=== PATIENT | male | born 1960 | race Caucasian/White ===

== ENCOUNTER 2016-07-07 19:29 | Inpatient (IN) | payer OTHER ==
[~2016-07-07] VITALS: Ht 167.6 cm; Wt 114.1 kg
[~2016-07-07 19:29] MED LIST: AGM875T PO; ALPR0.5T PO; ASPI-973 PO; ATEN25TA PO; CIPRODEX RIGHT_EAR; FLUO20CA25 PO; LOSA100T29 PO; NPH,100I SUBQ; OXYC5CAP4 PO; SIMV80TA4 PO
[2016-07-07 19:45] VITALS: BP 114/70; PULSE 71; RESP 20; O2SAT 97
[2016-07-07] MEDS ORDERED: Polyethylene Glycol (PEG) 17 Gm Powder PO PRN (20:00)
[2016-07-07] MEDS ORDERED: Ondansetron 2 mg/mL 2 mL Inj IVPUSH PRN (20:00)
[2016-07-07] MEDS: Vancomycin Dose per Pharmacist XX SCH (20:00)
[2016-07-07] MEDS ORDERED: Alum-Mag Hydrox-Simeth 30 mL Suspension PO PRN (20:00)
--- NOTE | 2016-07-07 20:15 | PCM.HPMED ---
Subjective Date of Service Jul 07, 2016 Primary Provider: Admitting Physician: Jaxson Robertson MD Primary Care Physician: Du Petty MD Attending Physician: Jaxson Robertson MD Chief Complaint: Non healing foot ulcer History of Present Illness: This is a 55-year-old male with past medical history of Hypertension, obesity, hypercholesterolemia, insulin-dependent diabetes. Patient presented to the podiatry due to a non healing foot ulcer, with drainage of pus. Patient is sent to the hospital for direct admission. Patient was recently in the low when he first noticed his wound and the bottom of his left foot, trans metatarsal area. He went to the hospital where he had a debridement done. Patient stated he spent 4 days and the hospital and received IV antibiotics, he was discharged on oral ciprofloxacin. Patient immediately went to the airport and the flight back home to [place] and today presented to her podiatry ( less than 48 hours) . Patient endorses subjective fever, chills over the last 24 hours or so. No chest pain, shortness of breath , abdominal pain.,. Review of Systems: Review of systems is pertinent for ulcer,, subjective fever, chills as described above in history of present illness otherwise a comprehensive review x 12 points is negative Allergies Coded Allergies: atorvastatin calcium (Verified Adverse Reaction, Unknown, 09/23/15) Home Medications Oxycodone 10 mg, atenolol 25 mg orally daily, Xanax 0.5 mg 3 times a day, aspirin 81 mg orally daily, losartan 100 mg orally daily, fluoxetine 20 mg orally daily, NPH 40 units twice a day, simvastatin 80 mg orally daily PMH Hypertension, Hypercholesterolemia, Obesity, Insulin-dependent diabetes mellitus. 2 Surgical History Right mastoidectomy , Foot surgery Family History Mother has type II diabetes and hypertension Social History Hx Alcohol Use: No Hx Substance Use: No Hx Tobacco Use: No Smoking Status: Former Smoker Living Arrangement: with Family Exam Vital Signs Vital Sign - Last Date Time Temp Pulse Resp B/P Pulse Ox O2 Delivery O2 Flow Rate FiO2 07/07/16 19:45 36.6 71 20 114/70 97 Room Air Exam General/Constitutional: obese male , and stretcher comfortably, no acute distress HEENT: Normocephalic, atraumatic, sclera anicteric Mouth: Moist oropharyngeal mucosa, no oral thrush. Neck: Atraumatic, Supple, no JVD , trachea is midline No swelling, Non-tender, No carotid bruit Heart: S1, S2, Regular rhythm, No murmurs, No rubs, no gallop Chest:Atraumatic, no chest wall deformity, no tenderness Abdomen / GI: Obese , Soft, Non-tender, non distended, no palpable masses. Bowel sounds normal Lymphatic: No lymphadenopathy, no splenomegaly Extremities: No cyanosis, no calf tenderness . Left LE with dressing in place. No ankle swelling or edema Skin: Warm, Dry, No cyanosis, no rash, and also Psychiatric: Mood/affect normal, Behavior normal, Normal thought content Neurologic: Oriented X3, grossly n Lab and Diagnostics Labs Labs pending X-Rays, CTs and MRIs Foot X-ray Pending Assessment & Plan 1. Infected diabetic Foot Ulcer 2. R/o Osteomyelitis 3. IDDM Type II 4. Hypertension 5. Hypercholesterolemia 6. Obesity Admit inpatient . Patient is being arranged to the OR for tomorrow By Dr Rendon . Obtain blood culture. Wound culture to be obtain during surgery . Start empiric antibiotics : Zosyn and Vancomycin . Patient recently treated with IV antibiotics for 4 days at hospital in [place] and was discharged on PO Cipro. 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 Obtain X-ray to r/o osteomyelitis . consider MRI if negative. Consult Infectious Disease Dr Page Thigh diabetic control . Start Moderate sliding scale insulin , diabetic diet. Obtain A1c . Home medications reviewed and reconciled . Hold Aspirin until tomorrow in PM Heparin for DVT prophylaxis as of tomorrow pm Case discussed over the phone with Podiatry Dr. Rendon . Jaxson Robertson MD Jul 07, 2016 20:15
[2016-07-07 20:50] LABS: BASOPHILS % (AUTO) 0.6 % (0-3); EOSINOPHILS % (AUTO) 2.4 % (0-5); MONOCYTES % (AUTO) 9.6 % (4-12); Platelet Count 163 bil/L (150-400)
[2016-07-07 20:58] LABS: INR 1.01 ratio
[2016-07-07] MEDS ORDERED: METF500T4 PO (20:59)
[2016-07-07] MEDS ORDERED: OMEP20CA11 PO (21:00)
[2016-07-07] MEDS ORDERED: NPH,100V11 SC (21:06)
[2016-07-07] MEDS ORDERED: NPH,100V11 SUBQ (21:06)
[2016-07-07] MEDS ORDERED: ALPR0.5T8 PO (21:09)
[2016-07-07] MEDS ORDERED: FLUO20CA25 PO (21:09)
[2016-07-07] MEDS ORDERED: Vancomycin Inj 2,250 MG in 0.9% Sodium Chloride 500 ML IV ONE (21:30)
--- NOTE | 2016-07-07 21:35 | NUR ---
Admit nurse note Partial admission assessment completed, finishing portions unfinished by primary RN. Pt. denies complaints at the present. He states he developed a blister while walking on tour in [place]. He was treated with fluid drainage and IV antibiotics for several days and then discharged prematurely to traveled back to [place] in order to get care here. PT. states he saw his PCP this morning and was referred here. Pt. gives hx cellulitis and foot wounds related to his diabetes. Med rec completed per PCP list. Allergies updated. Pt. oriented to room, call melvin and fall precautions. Report given to Lizabeth Weiner.
[2016-07-07] MEDS: Insulin Human REGular 300 Unit/3 mL Inj SUBQ SCH (22:46)
[2016-07-07] MEDS: ALPRAZolam 0.5 mg Tablet PO SCH (22:47)
--- NOTE | 2016-07-07 22:47 | PCM.PHAPRO ---
Progress Date of Service: Jul 07, 2016 Non healing foot ulcer Vancomycin Management per Pharmacy: Indication: Cellulitis rule out osteomyelitis Goal Trough: ~15 will shoot for 15, 15-20 if osteomyelitis on xray Age: 55 yo Weight: 114 kg Labs: WBC: 6.8 SrCr: 1.53 mg/dL B Hgb A1c (prior 2015): 10 Micro: Hx of MSSA, however per MD note pus draining form wound Nephrotoxic Risk Factors: Zosyn extended infusion, losartan, poorly controlled diabetes (Hgb A1c = 10) Vitals: All stable Recommendation: Load: Vancomycin 2250 mg IV given in ED (~20 mg/kg) Maintenance: Vancomycin 1750 mg IV Q24h (~15 mg/kg actual body weight) Trough: Draw on 07/10 @ 1999, prior to HS dose. Pharmacy to continue to monitor and adjust per protocol. Thank You, Maricruz Mcbride, Pharm D. Maricruz Mcbride Jul 07, 2016 22:47
[2016-07-07] MEDS: Piperacillin-Tazo 3.375 Gm Inj 3.375 GM in Dextrose 5% Minibag Plus 50 ML IV SCH (22:48)
[2016-07-07 23:59] VITALS: BP 113/73; PULSE 67; RESP 20; O2SAT 96
[2016-07-08] VITALS (9 sets, daily range): BP systolic 98–129; BP diastolic 57–75; PULSE 52–69; RESP 12–20; O2SAT 96–100
[2016-07-08] MEDS: Insulin Human REGular 300 Unit/3 mL Inj SUBQ SCH ×5 (02:30→22:00)
--- NOTE | 2016-07-08 07:23 | PCM.PNMED ---
Subjective Date of Service Jul 08, 2016 Subjective HPI as per admitting physician: This is a 55-year-old male with past medical history of Hypertension, obesity, hypercholesterolemia, insulin-dependent diabetes. Patient presented to the podiatry due to a non healing foot ulcer, with drainage of pus. Patient is sent to the hospital for direct admission. Patient was recently in the low when he first noticed his wound and the bottom of his left foot, trans metatarsal area. He went to the hospital where he had a debridement done. Patient stated he spent 4 days and the hospital and received IV antibiotics, he was discharged on oral ciprofloxacin. Patient immediately went to the airport and the flight back home to [place] and today presented to her podiatry ( less than 48 hours) . Patient endorses subjective fever, chills over the last 24 hours or so. No chest pain, shortness of breath , abdominal pain. S: no overnight events, afebrile - pain moderately controlled - sx today with podiatry - no reports of cp/sob Exam Vital Signs Vital Sign - Last Date Time Temp Pulse Resp B/P Pulse Ox O2 Delivery O2 Flow Rate FiO2 07/08/16 05:01 36.7 52 20 123/72 100 Room Air Intake and Output 07/07/16 07/07/16 07/08/16 Cumulative From/Thru 15:00 23:00 07:00 07/07/16 19:39 - 07/08/16 06:14 Intake Total 408 ml 408 ml Output Total 200 ml 200 ml Balance 208 ml 208 ml Intake Oral 200 ml 200 ml IV Total 208 ml 208 ml Output Urine Total 200 ml 200 ml # Bowel Movements 1 1 Exam General/Constitutional: obese male , and stretcher comfortably, no acute distress HEENT: Normocephalic, atraumatic, sclera anicteric Mouth: Moist oropharyngeal mucosa, no oral thrush. Neck: Atraumatic, Supple, no JVD , trachea is midline No swelling, Non-tender, No carotid bruit Heart: S1, S2, Regular rhythm, No murmurs, No rubs, no gallop Chest:Atraumatic, no chest wall deformity, no tenderness Abdomen / GI: Obese , Soft, Non-tender, non distended, no palpable masses. Bowel sounds normal Lymphatic: No lymphadenopathy, no splenomegaly Extremities: No cyanosis, no calf tenderness . Left LE with dressing in place. No ankle swelling or edema Skin: Warm, Dry, No cyanosis, no rash, and also Psychiatric: Mood/affect normal, Behavior normal, Normal thought content Neurologic: Oriented X3 IVs and Medications Medications Reviewed: Medications were reviewed in detail Lab and Diagnostics Result Diagram: 07/07/16203407/07/162034 X-Rays, CTs and MRIs Foot X-ray Pending Assessment & Plan 1. Infected diabetic Foot Ulcer 2. R/o Osteomyelitis 3. IDDM Type II 4. Hypertension 5. Hypercholesterolemia 6. Obesity Admit inpatient - Patient is being arranged to the OR for today By Dr Rendon . Wound culture to be obtain during surgery . Started empiric antibiotics : Zosyn and Vancomycin 07/07. Patient recently treated with IV antibiotics for 4 days at hospital in [place] and was discharged on PO Cipro. 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 Obtain X-ray to r/o osteomyelitis . consider MRI if negative. Consult Infectious Disease Dr Page, appreciate recommendation uncontrolled DM: Start Moderate sliding scale insulin , diabetic diet. A1C: 8.7 Home medications reviewed and reconciled . Hold Aspirin until tomorrow in PM Heparin for DVT prophylaxis as of tomorrow pm Case discussed over the phone with Podiatry Dr. Rendon by admitting physician. Pain Evaluation: Adequate Pain Control GI Prophylaxis: Not indicated VTE Prophylaxis: Sub-Q Heparin (Unfractionated) VTE Mechanical Devices: Intermittant Pneumatic CD Resuscitation Status: CPR: Attempt Resuscitation Time spent 35 minutes spent with Jaxson Ross DO Jul 08, 2016 07:23
[2016-07-08] MEDS: Piperacillin-Tazo 3.375 Gm Inj 3.375 GM in Dextrose 5% Minibag Plus 50 ML IV SCH ×3 (08:17→20:22)
[2016-07-08] MEDS: ALPRAZolam 0.5 mg Tablet PO SCH ×3 (08:21→22:47)
[2016-07-08] MEDS: Vancomycin Dose per Pharmacist XX SCH (08:24)
--- NOTE | 2016-07-08 09:34 | DRSVH ---
PROCEDURE: X-RAY LEFT FOOT, TWO VIEWS ([id number]) INDICATIONS: RULE OUT osteomyelitis TECHNIQUE: 2 views of the foot were acquired. COMPARISON: None. FINDINGS: Bones: No fractures or dislocations. No suspicious bony lesions. Calcaneal spurring. Soft tissues: No tibiotalar joint effusion. Achilles tendon appears normal. IMPRESSION: Although no bony erosions are identified, plain film radiography is relatively insensiti ve in the acute phases of osteomyelitis and may not demonstrate radiographic changes for 15 days. If acute osteomyelitis is of clinical concern, nuclear medicine regional bone scan or MRI is recommende d. Dictated by: Brennan Mosquera [facility] Interpreted: Lamar Blackman MD on 07/08/2016 at 9:33 Transcribed by: CARLO on 07/08/2016 at 9:34 Approved by: Lamar Blackman MD, PhD on 07/08/2016 at 17:05
--- NOTE | 2016-07-08 14:00 | NUR ---
TO OR Report given to Marie in the OR. BS-216. NPO since midnight. Dressing on his L foot is CDI. Transported to the ED via a gurney.
[2016-07-08] MEDS ORDERED: Lactated Ringer's 1,000 ML IV ONE (14:42)
--- NOTE | 2016-07-08 15:04 | PCM.HPANE ---
Patient Data Date of Service: Jul 08, 2016 Surgeon Admitting Provider:Jaxson Robertson MD Attending Provider:Jaxson Robertson MD Primary Care Physician:Du Petty MD Other Provider: Reason for Visit Diabetic Foot Ulcer Ht/WT & BMI Height (Feet): 5 Height (Inches): 6.00 Weight (Kilograms): 114.100 Body Mass Index 40.43 Allergies Coded Allergies: lisinopril (Verified Allergy, Mild, 07/07/16) hydromorphone (Verified Adverse Reaction, Intermediate, Hallucinations, ) atorvastatin calcium (Verified Adverse Reaction, Unknown, 07/07/16) Past Anesthesia History Anesthesia History: Denies:: Anesthesia Reactions Diabetes History Hx Diabetes?: Yes (Type II on insulin) Current Bedside Blood Glucose: 216 MRSA MRSA: No Medications Hypertension Medication: Yes Home Meds Incl Beta Ad: Yes Date Beta Ad Taken: Jul 08, 2016 Time Beta Ad Taken: 08:22 Previous Beta Ad Dose >24: Previous Dose <24 Hours Reported Medications Alprazolam 0.5 Mg Tablet0.5 Mg PO TID PRN For Anxiety #60 07/07/16 NPH, Human Insulin Isophane (HUMulin-N U100 Insulin Vial)100 Unit/1 Ml Vial30 Unit SUBQ HS #1 VIAL Ref 0 07/07/16 NPH, Human Insulin Isophane (HUMulin-N U100 Insulin Vial)100 Unit/1 Ml Vial50 Units SC QAM #40 07/07/16 Omeprazole 20 Mg Capsule.dr20 Mg PO DAILY #30 07/07/16 Metformin 500 Mg Tablet1,000 Mg PO BID #120 07/07/16 oxyCODONE 5 Mg Capsule5-10 Mg PO Q4H PRN For Pain Ref 0 09/23/15 Simvastatin 80 Mg Ujmamz13 Mg PO HS 30 Days Ref 0 09/16/15 Fluoxetine 20 Mg Jskgtde71 Mg PO DAILY Ref 0 09/16/15 Aspirin 81 Mg Wwbhdi30 Mg PO DAILY Ref 0 09/16/15 Losartan Potassium 100 Mg Jdohwj480 Mg PO DAILY 09/16/15 Atenolol 25 Mg Dvjlig05 Mg PO DAILY #30 TABLET Ref 0 09/16/15 Discontinued Reported Medications Amoxicillin/Clav K 875-125 mg 875 Mg Tab1 Tablet PO BID #20 TABLET Ref 0 09/16/15 Discontinued Scripts Ciprofloxacin/Dexameth Otic Susp (Ciprodex Otic Susp)15 Drop/Ml Oticsoln4 Drop RIGHT_EAR BID 7 Days Ref 0 Prov:Ashly Gonzalez MD 09/18/15 NPH, Human Insulin Isophane (HUMulin-N U100 Insulin Kwikpen)100 Unit/1 Ml Insuln.pen40 Unit SUBQ BID 30 Days Ref 0 Prov:Ashly Gonzalez MD 09/18/15 History History of ENT Problems?: Yes HEENT History: Positive for:: Sinus Problem (POLYPS REMOVED) Denies:: Cataracts Dysphagia Glaucoma Other HEENT Pertinent History: MASTOIDECTOMY - SKULL COMPROMISED BY INFECTION Hx of Heart Problems?: Yes Cardiovascular History: Positive for:: Hypertension Denies:: Cardiac Surgery Chest Pain Congestive Heart Failure Edema Heart Murmur Irregular Heartbeat Pacemaker Thrombophlebitis Other Cardiac History: HYPERLIPIDEMIA Hx of Respiratory Problem?: No Respiratory History: Denies:: Asthma COPD Chest Surgery Dyspnea Emphysema Hemoptysis Pneumonia Tuberculosis Hx Neurologic Problems?: No Neurological History: Denies:: Alzheimer's Disease CVA Dementia Dizziness Headaches Parkinson's Disease Seizures Hx of GI Problems?: Yes Gastrointestinal History: Positive for:: Heartburn (POSSIBLE) Denies:: Diverticulitis Gastroesphageal Reflux Gastrointestinal Bleeding Hepatitis Hiatal Hernia Rectal Bleeding Hx of Problems?: No Genitourinary History: Denies:: HX of Hemodialysis Kidney Stones Urinary Tract Infection HX of Peritoneal Dialysis: No Male Hx: Denies:: Prostate Problems Scrotal Mass Testicular Surgery Hx Musculoskeletal Problems?: Yes Musculoskeletal History: Positive for:: Musculoskeletal Trauma (left second toe injury and surgery) Denies:: Back Injury Joint Replacement Hx of Psycho/Social Problems?: Yes Psycho Social History: Positive for:: Hx Depression (situational - on fluoxetine) Denies:: Anxiety Bipolar Disorder Suicide Attempt Hx Surgeries?: Yes (Left toe surgery, mastoidectomy, R ankle) Hx Any Other Health Problems?: Yes Other History: Positive for:: Hospitalization (osteomyelitis, mastoiditis) Denies:: Cancer Thyroid Disease History Blood Transfusions: Positive for:: Accept Blood Products? Denies:: Blood Transfusions Hx Diabetes: Yes (Type II on insulin)Bedside Blood Glucose: 216 Hx Alcohol Use: NoHx Substance Use: No Smoking Status: Former Smoker Have You Smoked inLast 12 mo: No Stop/Bang Treated for Sleep Apnea?: No Do You Have a CPAP Machine?: No S-Snoring: Do You Snore Loudly: Yes T-Tired: feel tired, fatigued: Yes O-Obsered: Observed not breath: Yes P-Blood Pressure: treated: Yes B- Body Mass Index > 35 kg/m2: Yes A- Age over 50: Yes N- Neck Large Circumference: Yes G- Gender Male: Yes GUSTAVO Total Score: 8 GUSTAVO Risk Assessment: High Risk, =/>3 Yes GUSTAVO Category 2: Yes Risk Assessment Category Category 1A: Patient has history of documented sleep apnea, and HAS NOT received any narcotic, sedative or anesthesia administration during this stay. Category 1B: Patient has history of documented sleep apnea, and HAS received any narcotic , sedative or anesthesia administration during this stay Category 2: Patient has SUSPECTED Obstructive Sleep Apnea, and HAS received any narcotic , sedative or anesthesia administration during this stay. Category 3: Patient has SUSPECTED Obstructive Sleep Apnea and HAS NOT received narcotic, sedative or anesthesia administration during this stay. Category 4: Outpatient in Procedural Areas with known sleep apnea or who screen positive for High Risk via the STOP/BANG questionnaire. Exam Exam Vital Signs Vital Signs Date Time Temp Pulse Resp B/P Pulse Ox O2 Delivery O2 Flow Rate FiO2 07/08/16 08:26 36.7 69 16 119/70 96 Room Air General Appearance: Alert, Oriented X3, Cooperative, No Acute Distress HEENT/AIRWAY: MP 2, Neck Movement (from), Mouth Opening (3 fb), Other (tmd 3 fb ) Lungs: Clear to Auscultation, Normal Air Movement Heart: Exam Unremarkable, Regular Rate/Rhythm, No Murmurs/Rubs/Gallops Meds/Labs/Diagnostics Admission Meds Current Medications Piperacillin Sod/ Tazobactam Sod/ Dextrose/Water (Zosyn 3.375 Gm Inj/D5W Minibag Plus) 50 ml @ 12.5 mls/hr Q8H IV Last administered on 07/08/16 08:17 ; Start 07/07/16 at 21:00 Insulin Human Regular (HUMulin-R Insulin Inj) * Medium Dose Insu... Q6 SUBQ Last administered on 07/08/16 13:52; Start 07/07/16 at 20:30 Alprazolam (Xanax) 0.5 mg TID PO Last administered on 07/08/16 08:21; Start at 20:30 Atenolol (Tenormin) 25 mg DAILY PO Last administered on 07/08/16 08:22; Start 07/08/16 at 08:30 Fluoxetine HCl (Prozac) 20 mg DAILY PO Last administered on 07/08/16 08:22; Start 07/08/16 at 08:30 Losartan Potassium (Cozaar) 100 mg DAILY PO Last administered on 07/08/16 08: 21; Start 07/08/16 at 08:30 Rosuvastatin Calcium 20 mg 20 mg HS PO Last administered on 07/07/16 22:47; Start 07/07/16 at 21:00 Vancomycin HCl/ Sodium Chloride (Vancocin Inj/ Normal Saline) 500 ml @ 250 mls/ hr ONCE ONCE IV Last administered on 07/08/16 03:57; Start 07/07/16 at 21:30 ; Stop 07/07/16 at 23:29; Status DC Bedside Blood Glucose: 216 Labs Test 07/07/16 20:35 07/07/16 20:53 07/08/16 04:26 White Blood Count 6.8th/mm3 (3.8-10.1) Red Blood Count 3.86mil/mm3 (4.40-5.80) Hemoglobin 11.2g/dL (13.8-17.2) Hematocrit 33.6% (41.0-50.0) Mean Corpuscular Volume 87.0fL (81-100) Mean Corpuscular Hemoglobin 29.0pg (27.0-35.0) Mean Corpuscular Hemoglobin Concent 33.3% (32.0-37.0) Red Cell Distribution Width 13.0% (12.3-15.4) Platelet Count 163bil/L (150-400) Neutrophils (%) (Auto) 69.0% (40-74) Lymphocytes (%) (Auto) 15.4% (14-46) Monocytes (%) (Auto) 9.6% (4-12) Eosinophils (%) (Auto) 2.4% (0-5) Basophils (%) (Auto) 0.6% (0-3) Prothrombin Time 10.8sec (8.1-12.5) Prothromb Time International Ratio 1.01ratio Hemoglobin A1c 8.7% (4.8-5.6) Total Bilirubin 0.3mg/dL (0.0-1.2) Aspartate Amino Transf (AST/SGOT) 21U/L (0-50) Alanine Aminotransferase (ALT/SGPT) 25U/L (0-44) Alkaline Phosphatase 87U/L (25-150) Total Protein 6.9g/dL (6.4-8.4) Albumin 3.6g/dL (3.4-5.0) Hold Urine Received (Received) Sodium Level 139mEq/L (134-144) Potassium Level 4.1mEq/L (3.5-5.2) Chloride Level 100mEq/L (97-108) Carbon Dioxide Level 20mmol/L (18-29) Blood Urea Nitrogen 30mg/dL (6-24) Creatinine 1.48mg/dL (0.76-1.27) Estimat Glomerular Filtration Rate 53mL/min (>59) Glucose Level 218mg/dL (60-99) Calcium Level 9.7mg/dL (8.5-10.1) Triglycerides Level 444mg/dL (0-149) Cholesterol Level 250mg/dL (100-199) LDL Cholesterol, Calculated 146.200mg/dL (0-99) VLDL Cholesterol 88.800mg/dL HDL Cholesterol 15mg/dL (>39) Cholesterol/HDL Ratio 16.67 (0.0-4.4) Plan Impression Patient chart reviewed, patient interviewed and anesthestic plan with risks, benefits, and alternatives discussed, and informed consent obtained. ASA Physical Status: ASA3 Severe Disease Anesthetic Plan: TIVA Bene/Risks/Altern/Consents: Yes HP Complete Prior to Induction: Yes Dalton Boswell MD Jul 08, 2016 15:04
[2016-07-08] MEDS ORDERED: MetoCLOpramide 5 mg/mL 2 mL Inj IVPUSH PRN (15:05)
[2016-07-08] MEDS ORDERED: EPHEDrine Sulfate 50 mg/mL Inj IM PRN (15:05)
[2016-07-08] MEDS ORDERED: Ondansetron 2 mg/mL 2 mL Inj IVPUSH PRN (15:05)
[2016-07-08] MEDS ORDERED: hydrALAZINE 20 mg/mL Inj IVPUSH PRN (15:05)
[2016-07-08] MEDS ORDERED: Lactated Ringer's 1,000 ML IV SCH (15:05)
[2016-07-08] MEDS ORDERED: Phenylephrine 10,000 mCg/mL Inj IVPUSH PRN (15:05)
[2016-07-08] MEDS ORDERED: EPHEDrine Sulfate 50 mg/mL Inj IVPUSH PRN (15:05)
[2016-07-08] MEDS ORDERED: Lactated Ringer's 500 ML IV PRN (15:05)
[2016-07-08] MEDS ORDERED: HYDROmorphone 1 mg/mL Inj IVPUSH PRN (15:05)
[2016-07-08] MEDS ORDERED: Atropine 0.4 mg/mL Inj IVPUSH PRN (15:05)
[2016-07-08] MEDS ORDERED: fentaNYL-PF 50 mCg/mL 2 mL Inj IVPUSH PRN (15:05)
[2016-07-08] MEDS ORDERED: Gentamicin 40 mg/mL 2 mL Inj IRRIGATION ONE (15:07)
[2016-07-08] MEDS ORDERED: Bupivacaine-MPF 0.5% 30 mL Inj INFILTRATE ONE (15:08)
--- NOTE | 2016-07-08 18:12 | NUR ---
Social Work- Brief Note Data: EMR reviewed. Pt is a 55 year old male admitted 07/07/16 for diabetic foot ulcer per H&P. Pt's insurance is [employer]. Pt's PCP is Du Petty MD. SW met with pt regarding discharge plan, SW role explained. Pt alert and oriented x3. Pt resides in [place] with [place]. Pt and were in [place] prior to admission. Pt's is still in [place], unavailable as contact. Pt uses no DME and drives. ID is following pt. Pt's DPOA is Sima Koroma, , . Pt has a few steps into his home, may require PT evaluation prior to discharge pending clinical course. Pt to discharge home with family to transport. SW left plan and phone number on whiteboard. SW will continue to follow for needs. Assessment: [place]. Plan: ID following patient. Pt to discharge home with family to transport. SW will continue to follow for needs. Anna Morgan MSW
--- NOTE | 2016-07-08 19:13 | NUR ---
POST-OP Received from PACU via a hospital bed. IV saline locked. Denies pain. Diet will be restarted. Denies SOB. Dressing on his L foot is CDI. He is able to wiggle his toes. Numbness present and is patients baseline. BS-190; SS administered. Oriented to room, call light and bathroom.
--- NOTE | 2016-07-08 19:52 | PCM.ANEP1 ---
Post Anesthesia Phase 1 PACU Phase 1 Assessment Date of Service: Jul 08, 2016 Vital Signs Vital Signs Date Time Temp Pulse Resp B/P Pulse Ox O2 Delivery O2 Flow Rate FiO2 07/08/16 16:47 36.4 57 18 108/70 97 Room Air 07/08/16 16:10 58 12 116/62 96 07/08/16 15:50 36.2 57 14 110/64 96 07/08/16 15:45 66 14 129/66 96 07/08/16 15:40 61 15 98/59 97 07/08/16 15:36 35.5 62 12 100/57 96 Anesthetic Administered: GA Level of Alertness: Awake, talking ISAACS's with Equal Strength: Yes Pain: No Nausea or Vomiting: No Oxygen Delivery: Room Air Lungs: Clear to Auscultation, Normal Air Movement Dermatome Level: Full Sensation Dalton Boswell MD Jul 08, 2016 19:52
--- NOTE | 2016-07-08 19:53 | PCM.ANEP2 ---
Post Anesthesia Evaluation ASA/CMS Post Anesthesia Date of Service: Jul 08, 2016 VS in Patient's Normal Range?: Yes Resp Stable; Airway Patent?: Yes CV Function & Hydration Stable: Yes Mental Status Recovered?: Yes Pain control Satisfactory?: Yes N/V Control Satisfactory?: Yes Dalton Boswell MD Jul 08, 2016 19:52
[2016-07-08] MEDS: Vancomycin Inj 1,750 MG in 0.9% Sodium Chloride 500 ML IV SCH (20:22)
[2016-07-08] MEDS: Heparin 5,000 Unit/mL Inj SUBQ SCH (22:47)
[2016-07-09 00:30] VITALS: BP 143/85; PULSE 58; RESP 18; O2SAT 96
[2016-07-09 04:55] VITALS: BP 122/79; PULSE 63; RESP 16; O2SAT 95
[2016-07-09] MEDS: Piperacillin-Tazo 3.375 Gm Inj 3.375 GM in Dextrose 5% Minibag Plus 50 ML IV SCH ×2 (05:38→13:09)
[2016-07-09] MEDS: Heparin 5,000 Unit/mL Inj SUBQ SCH ×3 (05:39→21:40)
--- NOTE | 2016-07-09 06:09 | NUR ---
Activity Ambulating in room with FWW and heel touch weight bearing to LLE. Steady gait without any noted issues including dizziness, SOB or foot pain. Dressing remains CDI and LLE CMS + with exception to sensation which patient states at baseline he has no feeling r/t neuropathy.
[2016-07-09] MEDS ORDERED: 0.9% Sodium Chloride 1,000 ML IV SCH (07:40)
--- NOTE | 2016-07-09 07:44 | PCM.PNMED ---
Subjective Date of Service Jul 09, 2016 Subjective no complaints overnight - post op, micro pending - ID following. pain tolerable - afebrile, no cp/sob - restart IVF x 10 h - monitor UOP given benton Exam Vital Signs Vital Sign - Last Date Time Temp Pulse Resp B/P Pulse Ox O2 Delivery O2 Flow Rate FiO2 07/09/16 04:55 36.3 63 16 122/79 95 Room Air Intake and Output 07/08/16 07/08/16 07/09/16 Cumulative From/Thru 15:00 23:00 07:00 07/07/16 19:39 - 07/09/16 06:37 Intake Total 200 ml 600 ml 400 ml 1608 ml Output Total 200 ml Balance 200 ml 600 ml 400 ml 1408 ml Intake Oral 400 ml 400 ml 1000 ml IV Total 200 ml 200 ml 0 ml 608 ml Output Urine Total 200 ml # Voids 2 3 5 # Bowel Movements 1 2 Exam General/Constitutional: obese male , and stretcher comfortably, no acute distress HEENT: Normocephalic, atraumatic, sclera anicteric Mouth: Moist oropharyngeal mucosa, no oral thrush. Neck: Atraumatic, Supple, no JVD , trachea is midline No swelling, Non-tender, No carotid bruit Heart: S1, S2, Regular rhythm, No murmurs, No rubs, no gallop Chest:Atraumatic, no chest wall deformity, no tenderness Abdomen / GI: Obese , Soft, Non-tender, non distended, no palpable masses. Bowel sounds normal Lymphatic: No lymphadenopathy, no splenomegaly Extremities: No cyanosis, no calf tenderness . Left LE with dressing in place. decr sensation b/l, warm Skin: Warm, Dry, No cyanosis, no rash, and also Psychiatric: Mood/affect normal, Behavior normal, Normal thought content Neurologic: Oriented X3 IVs and Medications Medications Reviewed: Medications were reviewed in detail Lab and Diagnostics Result Diagram: 07/07/16203407/09/16 0455 X-Rays, CTs and MRIs Foot X-ray Pending Assessment & Plan 1. Infected diabetic Foot Ulcer -Admit inpatient - Patient is being arranged to the OR for today By Dr Rendon .Wound culture obtained during surgery - pending -Started empiric antibiotics : Zosyn and Vancomycin 07/07. Patient recently treated with IV antibiotics for 4 days at hospital in [place] and was discharged on PO Cipro. -ID consulted - appreciate recs 2. R/o Osteomyelitis 3. IDDM Type II - Start Moderate sliding scale insulin , diabetic diet. A1C: 8.7 , restart asa if no bleeding today 4. Hypertension - cont losartan 100mg, if no improv in renal fxn will hold 5. Hypercholesterolemia 6. Obesity 7. GERD - resteart PPI Heparin for DVT prophylaxis as of tomorrow pm Pain Evaluation: Adequate Pain Control GI Prophylaxis: Not indicated VTE Prophylaxis: Sub-Q Heparin (Unfractionated) VTE Mechanical Devices: Intermittant Pneumatic CD Resuscitation Status: CPR: Attempt Resuscitation Time spent 35 minutes spent with eval and mgmt Jaxson Hernadez DO Jul 09, 2016 07:44
[2016-07-09 08:05] LABS: BASOPHILS % (AUTO) 0.9 % (0-3); EOSINOPHILS % (AUTO) 3.5 % (0-5); MONOCYTES % (AUTO) 8.7 % (4-12); Mean Corpuscular Hemoglobin 29.3 pg (27.0-35.0); Mean Corpuscular Volume 88.3 fL (81-100); Platelet Count 187 bil/L (150-400)
[2016-07-09] MEDS: ALPRAZolam 0.5 mg Tablet PO SCH ×3 (08:30→21:39)
[2016-07-09] MEDS: Vancomycin Dose per Pharmacist XX SCH (08:30)
[2016-07-09] MEDS: Pantoprazole 20 mg ER24 Tablet PO SCH (08:34)
[2016-07-09] MEDS: Insulin Human REGular 300 Unit/3 mL Inj SUBQ SCH ×4 (08:34→21:40)
[2016-07-09 08:40] VITALS: BP 107/76; PULSE 68; RESP 14; O2SAT 96
--- NOTE | 2016-07-09 13:50 | PROG NOTE ---
[address] [address] PROGRESS NOTE PATIENT: OLAF ADAMSON : 1960 MR#: [id number] ADMIT: 07/07/2016 JOB ID: [id number] DATE: 07/07/2016 SUBJECTIVE: The patient is seen one day status post incision and drainage of abscess and debridement of ulcer, left foot. He denies any pain in his left foot. This is improved from before the surgery. He denies any fever or chills. PHYSICAL EXAMINATION: Blood pressure 107/76, pulse 68, respirations 14, temperature 36.3, pulse oximetry 96% on room air. Lower extremity examination: Dressing is intact with a small amount of bloody drainage on the inner dressing. There is no erythema of plantar second metatarsophalangeal joint. However, there is still some swelling. There is erythema and swelling around the dorsal incision around the second metatarsal plantar joint. No pustular discharge is noted. A small amount of bloody drainage from the plantar ulcer. There is no fibrous tissue noted. The bone over the second metatarsal head is exposed within the wound base. The granulation tissue is red and firm. Neurovascular status is intact to all toes of the left foot. LABORATORY DATA: WBC 6.6, hemoglobin 11.3, hematocrit 34.1, platelets 187, neutrophils 58. Sodium 139, potassium 4.4, chloride 102, carbon dioxide 22, BUN 25, creatinine 1.51, estimated GFR 51, glucose 191, calcium 9.7. Wound culture from July 08, 2016 shows few polys, mini gram-positive cocci. There is insufficient growth. Culture is re-incubated. ASSESSMENT AND PLAN: 1. Cellulitis with abscess left foot is resolving well status post I and D as well as the IV antibiotics appear to be resolving the acute infection. There is no pustular discharge today as there was yesterday. I flushed the ulcerations both dorsal and plantar. The area was then packed using 1/4-inch Iodoform gauze, and the remaining dressing consisted of dry 4x4 gauze, Kerlix and tape. The patient tolerated the procedure well. I recommended flushing of the wound and changing the dressing and packing twice a day. If the patient continues to do well, I think he could be discharged on Monday with oral antibiotics. I will recheck the foot for worsening signs of infection tomorrow. 2. Type 2 diabetes, uncontrolled. His hemoglobin A1c is elevated at 8.7. I have discussed with him in the past the importance of keeping his blood sugars under control to fight off infection as well as to promote wound healing.
[2016-07-09 13:55] VITALS: BP 103/68; PULSE 56; RESP 16; O2SAT 98
--- NOTE | 2016-07-09 13:59 | NUR ---
PTEvaluation completed. Please go to "Notes" then click on "Assessments and Notes" (bottom left corner of screen). Then select appropriate discipline tab on top of screen.
--- NOTE | 2016-07-09 16:22 | OP ---
[address] [address] OPERATIVE REPORT PATIENT: OLAF ADAMSON : 1960 MR#: [id number] ADMIT: 07/07/2016 JOB ID: [id number] DATE OF SURGERY: 07/08/2016 PREOPERATIVE DIAGNOSIS(ES): Abscess, second metatarsophalangeal joint, left foot, with diabetic ulcer. POSTOPERATIVE DIAGNOSIS(ES): Abscess, second metatarsophalangeal joint, left foot, with diabetic ulcer. SURGEON: Danuta Rendon DPM. ACCOUNT CONTACT ASSOCIATE: None. PROCEDURE: Incision and drainage of abscess with debridement of diabetic ulcer, second metatarsophalangeal joint, left foot. ANESTHESIA: Local with IV sedation. The patient is brought to the operating room and placed in supine position on the operating room table. After IV sedation was administered, 4 cc of a 1:1 mixture of lidocaine 1% plain and Marcaine 0.5% plain was infiltrated around the 2nd metatarsophalangeal joint. The foot was then prepped and draped in the usual sterile technique. Anesthesia was tested for and found to be adequate. Attention was then directed to the plantar aspect of the 2nd metatarsophalangeal joint where it was noted an ulceration which measured approximately 6 cm x 2 cm, plantar 2nd metatarsophalangeal joint. There was area of ulceration which probed down to the joint of the 2nd metatarsophalangeal joint and pustular discharge could be manually expressed through this area when there was pressure applied from both plantar and dorsal 2nd metatarsal plantar joint. Using a 10 blade, I incised from the deepest portion of the ulceration both distally and laterally up to the base of the second toe plantarly and also distally into the arch. The nonviable, fibrotic, and necrotic tissue was excised using a tissue nipper and a rongeur. A sample of the soft tissue was taken and Gram stain culture and sensitivity was ordered. It was noted that there was some fat necrosis as well as grayish fibrotic tissue and grayish friable fibrotic tissue within the subcutaneous tissue. I debrided down to the 2nd metatarsal head and it was noted that the joint capsule itself was also necrotic in appearance and this was debrided and excised and removed in toto. The 2nd metatarsal head appeared white and normal in color and was hard to palpation. The soft tissue around the joint which looked friable and discolored was excised using a rongeur. It was noted that dorsal pressure around the 2nd metatarsophalangeal joint created drainage through the plantar ulcer and attention was then directed to the dorsal aspect of the 2nd metatarsophalangeal joint where a 1.5 cm incision was made using a 15 blade. The incision was deepened down to subcutaneous tissue using iris scissors. It was noted that there was some friable fibrotic tissue within the area and this was excised using a tissue nipper and a rongeur. The area was then copiously flushed with lactated Ringer solution containing gentamicin solution. The area was then examined for further necrotic tissue and this was removed. The area was then copiously flushed again using lactated Ringer's with gentamicin. Attention was then directed to the plantar aspect of the 2nd metatarsophalangeal joint and the area was inspected for any further necrotic tissue. Using pulsed lavage, the area was copiously flushed with 1000 cc of lactated Ringer solution containing gentamicin. The area was then packed using quarter-inch Iodoform gauze, and the foot was dressed using lactated Ringer's moistened 4 x 4 gauze, both dorsally and plantarly, dry 4 x 4 gauze, Kerlix, and an Elie wrap. The patient tolerated the procedure and anesthesia well. He left the operating room with vital signs stable and vascular status intact to all toes of the left foot. The patient will be transferred back to the [facility] orthopedic floor once he is medically stable from the recovery room.
--- NOTE | 2016-07-09 19:16 | NUR ---
Dressing change Dr Rendon changed pt's left foot dressing this a.m. and asked that I do another dressing change before the end of day shift. Per Dr Rendon's instructions, I removed current dressing and packing, flushed the open wounds with normal saline. I then repacked both wounds with iodoform tape and covered the pt's foot with 4x4 gauze and kerlix. Pt tolerated the dressing change well. Care continues.
[2016-07-09 20:44] VITALS: BP 111/77; PULSE 62; RESP 16; O2SAT 96
[2016-07-09] MEDS: Vancomycin Inj 1,750 MG in 0.9% Sodium Chloride 500 ML IV SCH (21:42)
[2016-07-10] MEDS: Piperacillin-Tazo 3.375 Gm Inj 3.375 GM in Dextrose 5% Minibag Plus 50 ML IV SCH ×2 (00:12→04:46)
--- NOTE | 2016-07-10 02:38 | NUR ---
Activity Pt up to BR with SBA - following partial WB status to LLE; using IV pole or FWW to assist in off-loading while ambulating. Gait steady. CABLE LACER called down to CS and ordered postop shoe for patient. When awake, will place when awake and ambulating. No acute issues thus far. No c/o pain. IV patent - tolerating IV abx. Pleasant, call light in reach. Care continues.
[2016-07-10] MEDS: Heparin 5,000 Unit/mL Inj SUBQ SCH ×3 (04:44→20:47)
[2016-07-10 04:49] VITALS: BP 112/73; PULSE 65; RESP 18; O2SAT 98
[2016-07-10 05:06] LABS: BASOPHILS % (AUTO) 1.4 % (0-3); EOSINOPHILS % (AUTO) 4.9 % (0-5); MONOCYTES % (AUTO) 10.4 % (4-12); Mean Corpuscular Hemoglobin 29.2 pg (27.0-35.0); Mean Corpuscular Volume 86.3 fL (81-100); NEUTROPHILS % (AUTO) 41.9 % (40-74); Platelet Count 178 bil/L (150-400)
[2016-07-10] MEDS: Pantoprazole 20 mg ER24 Tablet PO SCH (06:21)
--- NOTE | 2016-07-10 07:33 | PCM.PNMED ---
Subjective Date of Service Jul 10, 2016 Subjective no acute events overnight, denies sob/cp/f - holding losartan with ADIN Exam Vital Signs Vital Sign - Last Date Time Temp Pulse Resp B/P Pulse Ox O2 Delivery O2 Flow Rate FiO2 07/10/16 04:49 36.6 65 18 112/73 98 Room Air Intake and Output 07/09/16 07/09/16 07/10/16 Cumulative From/Thru 15:00 23:00 07:00 07/07/16 19:39 - 07/10/16 06:19 Intake Total 1708 ml 1240 ml 4556 ml Output Total 200 ml Balance 1708 ml 1240 ml 4356 ml Intake Oral 800 ml 200 ml 2000 ml IV Total 908 ml 1040 ml 2556 ml Output Urine Total 200 ml # Voids 4 3 12 # Bowel Movements 1 3 Exam General/Constitutional: obese male , and stretcher comfortably, no acute distress HEENT: Normocephalic, atraumatic, sclera anicteric Mouth: Moist oropharyngeal mucosa, no oral thrush. Neck: Atraumatic, Supple, no JVD , trachea is midline No swelling, Non-tender, No carotid bruit Heart: S1, S2, Regular rhythm, No murmurs, No rubs, no gallop Chest:Atraumatic, no chest wall deformity, no tenderness Abdomen / GI: Obese , Soft, Non-tender, non distended, no palpable masses. Bowel sounds normal Lymphatic: No lymphadenopathy, no splenomegaly Extremities: No cyanosis, no calf tenderness . Left LE with dressing in place. decr sensation b/l, warm Skin: Warm, Dry, No cyanosis, no rash, and also Psychiatric: Mood/affect normal, Behavior normal, Normal thought content Neurologic: Oriented X3 IVs and Medications Medications Reviewed: Medications were reviewed in detail Lab and Diagnostics Result Diagram: 07/10/16 0430 07/10/16 0430 X-Rays, CTs and MRIs Foot X-ray Pending Additional Diagnostics I&D - Dr. Rendon DATE OF SURGERY: 07/08/2016 PREOPERATIVE DIAGNOSIS(ES): Abscess, second metatarsophalangeal joint, left foot, with diabetic ulcer. POSTOPERATIVE DIAGNOSIS(ES): Abscess, second metatarsophalangeal joint, left foot, with diabetic ulcer. Assessment & Plan 1. Infected diabetic Foot Ulcer -Admit inpatient -s/p I&D by Dr Rendon - Wound culture obtained during surgery - pending, needing reincubation, gram pos cocci on gram stain -cont empiric antibiotics : Zosyn and Vancomycin 07/07. Patient recently treated with IV antibiotics for 4 days at hospital in [place] and was discharged on PO Cipro. -ID consulted - appreciate recs 2. R/o Osteomyelitis 3. IDDM Type II - sliding scale insulin , diabetic diet. A1C: 8.7, restart asa if no bleeding today 4. Hypertension - cont losartan 100mg, if no improv in renal fxn will hold 5. Hypercholesterolemia/hypertriglyceridemia -start fenofibrate today - TG 444 6. Obesity 7. GERD - resteart PPI Heparin for DVT prophylaxis Pain Evaluation: Adequate Pain Control GI Prophylaxis: Not indicated VTE Prophylaxis: Sub-Q Heparin (Unfractionated) VTE Mechanical Devices: Intermittant Pneumatic CD Resuscitation Status: CPR: Attempt Resuscitation Time spent 35 minutes spent with eval and mgmt Jaxson Hernadez DO Jul 10, 2016 07:33
[2016-07-10] MEDS: Insulin Human REGular 300 Unit/3 mL Inj SUBQ SCH ×4 (08:11→22:00)
[2016-07-10] MEDS: ALPRAZolam 0.5 mg Tablet PO SCH ×3 (08:30→20:43)
[2016-07-10] MEDS: Vancomycin Dose per Pharmacist XX SCH (08:30)
[2016-07-10 10:58] VITALS: BP 112/76; PULSE 58; RESP 17; O2SAT 96
[2016-07-10 14:15] LABS: Magnesium 1.6 mg/dL (1.6-2.6); Phosphorus 3.6 mg/dL (2.5-4.9)
[2016-07-10 15:34] VITALS: BP 127/74; PULSE 57; RESP 18; O2SAT 97
[2016-07-10 17:05] LABS: APPEARANCE,URINE HAZY (CLEAR,HAZY); COLOR,URINE YELLOW (YELLOW); OCCULT BLOOD,URINE LARGE (NEGATIVE); PH,URINE 5.5 (5.0-8.0); UROBILINOGEN,URINE NORMAL (NORMAL)
--- NOTE | 2016-07-10 17:16 | NUR ---
Post voiding bladder scan Post-void residual urine of 15 mL at 1500. Post-void residual of 0 mL at 1640. Pt voiding without complaint.
[2016-07-10] MEDS ORDERED: Vancomycin Serum Trough XX ONE (20:00)
--- NOTE | 2016-07-10 20:07 | PROG NOTE ---
[address] [address] PROGRESS NOTE PATIENT: OLAF ADAMSON : 1960 MR#: [id number] ADMIT: 07/07/2016 JOB ID: [id number] DATE: 07/10/2016 The patient is seen two days status post incision and drainage of abscess, left foot. He denies any pain, fever, chills. He has a small amount of bloody drainage on the dressing when he got up today. He has been ambulating in his surgical shoe. PHYSICAL EXAMINATION: Blood pressure 127/74, pulse 57, respiratory rate 18, temperature 36.6, pulse oximetry 97% on room air. Lower extremity exam: Dressing is intact with a small amount of bloody drainage on the outer dressing. There is no erythema, plantar 2nd metatarsophalangeal joint. There is mild erythema and swelling around the dorsal ulcer over the 2nd metatarsophalangeal but this is decreased from the previous visit. A small amount of serosanguineous fluid. There is no pustular discharge noted. The granulation tissue is red and firm. There is bone and tendon exposed within the wound base and is unchanged the previous visit. The granulation tissue is red and firm. A small amount of fibrous tissue within the wound base. Neurovascular status is intact to all toes of the left foot. Microbiology wound culture from July 08, 2016 shows probable Staph aureus. Sensitivities to follow. No anaerobes isolated. LABORATORY DATA: WBC 4.9, hemoglobin 11.1, hematocrit 32.8, platelets 178, neutrophils 41.9. Sodium 138, potassium 4.6, chloride 101, carbon dioxide 23, BUN 23, creatinine 1.65, estimated GFR 46, glucose 171, calcium 9.3. ASSESSMENT AND PLAN: 1. Cellulitis with abscess, left foot, is resolving well. I think the patient can be discharged home on oral antibiotics once he is medically stable to go home as per the hospitalists. We will continue with the vancomycin and Zosyn until the sensitivities can be obtained from the intraoperative cultures. 2. Diabetic neuropathic ulcer, status post incision and drainage of left 2nd metatarsophalangeal joint. The dressing was changed and the area was copiously flushed with normal saline solution. The wounds were repacked using 1/4-inch Iodoform gauze and the remaining dressing consisted of 4 x 4 gauze and Kerlix. The patient tolerated the procedure well. Once the patient is discharged, recommend following up at the [facility] within one week. Patient instructed to change dressing daily and to limit his weightbearing in a surgical shoe. 3. Type 2 diabetes, uncontrolled. Will continue to monitor his blood sugars when he is in the wound clinic and make recommendations.
[2016-07-10 20:15] VITALS: BP 129/66; PULSE 62; RESP 16; O2SAT 96
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
--- NOTE | 2016-07-10 21:30 | PCM.PHAPRO ---
Progress Date of Service: Jul 10, 2016 Non healing foot ulcer Dx: cellulitis vancomycin goal 10-15 vancomycin trough 8.7 below goal increase vancomycin to 2gm IV q24h draw next trough at 2130 on 07/13 per pharmacy Josiah BrizuelaD Josiah Hassan Jul 10, 2016 21:30
[2016-07-10] MEDS ORDERED: Vancomycin Inj 2,000 MG in 0.9% Sodium Chloride 500 ML IV SCH (22:00)
[2016-07-11] MEDS: Heparin 5,000 Unit/mL Inj SUBQ SCH ×3 (05:08→21:45)
[2016-07-11 06:15] VITALS: BP 122/76; PULSE 62; RESP 16; O2SAT 98
[2016-07-11] MEDS: Pantoprazole 20 mg ER24 Tablet PO SCH (06:41)
[2016-07-11 06:53] LABS: Mean Corpuscular Hemoglobin 29.3 pg (27.0-35.0); Mean Corpuscular Volume 86.2 fL (81-100); Platelet Count 173 bil/L (150-400)
[2016-07-11 07:19] LABS: BASOPHILS % (AUTO) 1 % (0-3); EOSINOPHILS % (AUTO) 4 % (0-5); MONOCYTES % (AUTO) 8 % (4-12); NEUTROPHILS % (AUTO) 51 % (40-74)
[2016-07-11] MEDS: ALPRAZolam 0.5 mg Tablet PO SCH ×3 (08:30→21:44)
[2016-07-11] MEDS: Vancomycin Dose per Pharmacist XX SCH (08:30)
--- NOTE | 2016-07-11 10:47 | PCM.PNNEPH ---
Subjective Date of Service Jul 11, 2016 Subjective The patient was seen today and his troponin was reviewed. He has approximately a 20 year history of insulin-requiring diabetes mellitus. He is also a long- standing history of issues with his left foot following surgery a number of years ago. He denies a history of any prior renal problems, history of retinopathy, prostate problems. His renal function is beginning to improve and he appears to be in the diuretic phase of acute kidney injury. His blood pressures have ranged between 110 in the low 120s. Last 24-hour intake and output showed 2356 in and 900 out over the last 8 hours she has had 2300 in urine output. This morning's hemoglobin is 11.7, sodium is 138, potassium 4.2, chloride 102, bicarbonate is 22, BUN and creatinine are 20 and 1.4 respectively. Exam Vital Signs Vital Sign - Last Date Time Temp Pulse Resp B/P Pulse Ox O2 Delivery O2 Flow Rate FiO2 07/11/16 06:15 36.6 62 16 122/76 98 Room Air Intake and Output 07/10/16 07/10/16 07/11/16 Cumulative From/Thru 15:00 23:00 07:00 07/07/16 19:39 - 07/11/16 06:26 Intake Total 227 ml 1389 ml 1406 ml 7578 ml Output Total 900 ml 2300 ml 3400 ml Balance 227 ml 489 ml -894 ml 4178 ml Intake Oral 1260 ml 200 ml 3460 ml IV Total 227 ml 129 ml 1206 ml 4118 ml Output Urine Total 900 ml 2300 ml 3400 ml # Voids 12 # Bowel Movements 3 Exam HEENT examination is remarkable for mildly pale sclera. Neck is supple without adenopathy, thyromegaly, or intravenous distention. Lungs are clear although somewhat diminished in both bases. Heart was regular with a soft systolic murmur. Abdomen is soft without any tenderness or rebound guarding masses or hepatosplenomegaly. Extremities show any evidence of any clubbing, cyanosis, or edema. Lab and Diagnostics Result Diagram: 07/11/16 0600 07/11/16 0559 X-Rays, CTs and MRIs Foot X-ray Pending Additional Diagnostics I&D - Dr. Rendon DATE OF SURGERY: 07/08/2016 PREOPERATIVE DIAGNOSIS(ES): Abscess, second metatarsophalangeal joint, left foot, with diabetic ulcer. POSTOPERATIVE DIAGNOSIS(ES): Abscess, second metatarsophalangeal joint, left foot, with diabetic ulcer. Plan Impression Impression #1 drug-induced acute kidney injury which appears to resolving number to diabetic nephropathy #3 hypertension with hypertensive heart disease and hypertensive nephrosclerosis Recommendations #1 as the patient is in a diuretic phase we need to closely follow his urine output along with intake and output and lab over the next 24 hours. I would like to go ahead and discontinue Protonix as he is in acute kidney injury of this medication is contraindicated. Eder Goodwin DO Jul 11, 2016 10:47
[2016-07-11] MEDS: Insulin Human REGular 300 Unit/3 mL Inj SUBQ SCH ×4 (10:54→21:45)
[2016-07-11 13:09] VITALS: BP 121/75; PULSE 62; RESP 16; O2SAT 98
--- NOTE | 2016-07-11 13:45 | NUR ---
D/C from PT Pt has met all PT goals and is safe to amb w/NSG
[2016-07-11] MEDS: CeFAZolin Inj 2 GM in IV Premix 1 EACH IV SCH ×2 (14:21→21:45)
--- NOTE | 2016-07-11 14:36 | CONS ---
[address] [address] CONSULTATION REPORT PATIENT: OLAF ADAMSON : 1960 MR#: [id number] ADMIT: 07/07/2016 JOB ID: [id number] DATE OF SERVICE: 07/11/2016 INFECTIOUS DISEASE CONSULTATION: I thank Dr. Rendon for this timely consult. REASON FOR CONSULTATION: Severe left diabetic foot infection. 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 The patient is a longstanding diabetic with severe neuropathy and he had noticed a callus just under the head of his left 2nd toe prior to leaving but it was not bothering him, but with the plane flight and perhaps increased activity in [place] combined with his neuropathy he quickly developed a significant foot infection which led to his admission to a hospital in [place] for about four days. We have fragmentary records from that hospital and I have attempted to talk to them by telephone and are still waiting a record, and in particular, were interesting in getting from the [facility] the culture results that were done there. In any event, the patient received antibiotics intravenously and improved in the hospital for about three or four days and then was sent out on oral Cipro to return back to the [facility]. Once he flew back, he came to the ED and was admitted under the care of Dr. Rendon as well as the hospitalist service for debridement of his foot. During a procedure that was done on the , Dr. Rendon performed an extensive debridement and clean out of a septic joint as well as debridement of some necrotic tissue but she did not feel that there was involvement of the bone, and Dr. Rendon actually recommended that the patient could be discharged relatively soon with careful wound care and perhaps even oral antibiotics as he did not appear to have osteo. ID consultation is requested at this time regarding antibiotic management. Note that I came by to see the patient on Monday afternoon, July 09, but he was actually already in surgery and we did spend quite a period of time on the phone to the [facility] trying to get the micro like records but we were unsuccessful and asked that they Email them to us and we now await those records. The patient tells me that when he was initially ill in [place] he did have obvious drainage of pus out of his foot as well as fever, chills, malaise, generalized weakness and anorexia but no shortness of breath, chest pain, nausea, vomiting, diarrhea or dysuria. PAST MEDICAL HISTORY: 1. Diabetes mellitus type 2, insulin requiring, for about 25 years. 2. Hypertension. 3. Hyperlipidemia. 4. Morbid obesity with BMI just above 40. 5. History of recurrent diabetic foot infections. 6. Severe diabetic neuropathy. 7. History of mastoiditis September 2015 requiring extensive surgery at [facility] in [place]. 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 He neither smokes nor drinks. Does not use illicit drugs. FAMILY HISTORY: Negative for tuberculosis in first degree relatives. His mother has diabetes. REVIEW OF SYSTEMS: Was done. The patient has no significant headache, visual complaints or sinus symptoms. He no longer has any pain at the site of his right mastoid surgery. He denies stiff neck or swollen lymph nodes. No cough, shortness of breath, chest pain, nausea, vomiting or diarrhea. No dysuria, urgency or frequency and he has good urine output. He notes his feet are not quite insensate but he has very little feeling in them. Otherwise review of systems is negative. PHYSICAL EXAMINATION: Reveals an obese gentleman in no acute distress sitting up in his hospital room watching TV. Temperature 36.6, pulse 62, respiratory rate 16, blood pressure 122/76. He is saturating well on room air. Examination of the mental status completely normal. Head without trauma or temporal wasting. No scleral icterus or conjunctivitis. His oral cavity is benign. No thrush or hairy leukoplakia. Neck: Supple without adenopathy. Lungs: Clear posteriorly. Cardiac tones: Regular rate and rhythm without any murmur. He does not have any central line. He has a peripheral line in his left forearm which looks good. The hands and arms are benign-appearing. Abdomen: Soft and nontender without organomegaly. No Moyer catheter is present. No suprapubic tenderness. No cervical adenopathy. No inguinal adenopathy. His legs are without any venous stasis type changes or discoloration. His joints are free of any synovitis. His feet bilaterally have slow capillary refill at about 3 seconds but good large vessel pulses including dorsal pedal and posterior tibial. His feet are almost insensate and he does not appreciate touch or palpation. The left foot has a 5 cm vertical incision on the plantar surface which extends downward vertically across the foot beginning at the intersection of the 2nd and 3rd web space. This wound was packed and I removed the packing which was not foul smelling and the tissues appeared to be viable. On the upper side above the dorsal surface of the foot just basically directly through the foot from the large incision, there is a much smaller packed incision and I removed that packing too. This much smaller wound appears benign. Remainder of the physical is unremarkable. LABORATORIES: Include white count varying between 4000 and 6000, basically normal differential. Creatinine 1.41 and was as high as 1.65 yesterday, but it is improving already. C-reactive protein is pending as I just ordered it. Hemoglobin A1c 8.7. Cholesterol 250. LFTs are normal. Urinalysis without pyuria. Urine eosinophils negative. The culture from the foot obtained here grew MSSA. The DIANE to oxacillin is excellent at 0.5. We also have good sensitivity to tetracycline and Bactrim. The x-ray of the left foot shows no evidence of osteomyelitis. Renal and podiatry consults were reviewed. IMPRESSION: This patient has quite a severe diabetic foot infection which appears to extend all the way through the left foot at about the level of the 2nd and 3rd metatarsal heads. This has been extensively debrided by Dr. Rendon who debrided out the necrotic tissue including some joint capsule, and is now appropriately packed. It would appear clinically this wound is coming under control and the patient is certainly nontoxic with no fever, white count or systemic problems. My only concern here is the discovery of MSSA in a severe diabetic foot infection which presumably does not include osteomyelitis. My favorite choice in this situation would be the linezolid but the patient is on long-term Prozac and it would likely not be safe to combine these agents because of the risk of serotonin syndrome. Barring that, we could consider oral therapy for an extended period with another agent such as doxy, moxifloxacin or trimethoprim sulfamethoxazole, but all of these have some drawbacks. Dicloxacillin would also be a good oral option here. I am inclined to favor a short course at least of a once a day intravenous antibiotic which could be perhaps done in the [facility] or at his home in [place], but will plan to discuss this case with Dr. Rendon before making a final decision. RECOMMENDATIONS: 1. Discontinue vancomycin which I have done because of its nephrotoxic potential and is not needed here as we know it is MSSA. 2. Will start Ancef 2 g q.8. 3. I will discuss this case with Dr. Rendon to see whether she thinks osteo is possible and also to see if she thinks oral or IV therapy would be preferable. Then we will arrive at some decision and leave final recommendations in the morning. 4. I have ordered a CRP as well as changing the antibiotics.
--- NOTE | 2016-07-11 16:28 | PCM.PNMED ---
Subjective Date of Service Jul 11, 2016 Subjective Wondering about going home. No chest pain, no dyspnea, no nausea vomiting no foot pain Exam Vital Signs Vital Sign - Last Date Time Temp Pulse Resp B/P Pulse Ox O2 Delivery O2 Flow Rate FiO2 07/11/16 13:09 36.4 62 16 121/75 98 Room Air Intake and Output 07/10/16 07/10/16 07/11/16 Cumulative From/Thru 15:00 23:00 07:00 07/07/16 19:39 - 07/11/16 06:26 Intake Total 227 ml 1389 ml 1406 ml 7578 ml Output Total 900 ml 2300 ml 3400 ml Balance 227 ml 489 ml -894 ml 4178 ml Intake Oral 1260 ml 200 ml 3460 ml IV Total 227 ml 129 ml 1206 ml 4118 ml Output Urine Total 900 ml 2300 ml 3400 ml # Voids 12 # Bowel Movements 3 Exam Gen.- A+ O 3 no apparent distress. Obese male lying in bed Eyes- open conjunctiva clear, pupils equal nonicteric ENT- ears normal, nose normal Neck- supple/trach midline CVS-normal rate Lungs-normal rate, respirations regular no accessory muscles GI-generous pannus Musc- moving 4 no obvious deformity Neuro- cranial nerves II through XII intact to gross examination, nonfocal Skin- warm and dry, no rashes/lesions/wounds noted left foot wrapped in gauze , bloody drainage soaks through at base of foot Psych- pleasant and appropriate, Lab and Diagnostics Result Diagram: 07/11/16 0600 07/11/16 0559 X-Rays, CTs and MRIs Foot X-ray Pending Additional Diagnostics I&D - Dr. Rendon DATE OF SURGERY: 07/08/2016 PREOPERATIVE DIAGNOSIS(ES): Abscess, second metatarsophalangeal joint, left foot, with diabetic ulcer. POSTOPERATIVE DIAGNOSIS(ES): Abscess, second metatarsophalangeal joint, left foot, with diabetic ulcer. Assessment & Plan 55-year-old male came back from [place] with a diabetic foot 07/07, procedure with Dr. Rendon 07/08. Whether there is a concern of osteomyelitis is not clear at this time. # Infected diabetic Foot Ulcer -Admit inpatient -s/p I&D by Dr Rendon - Wound culture obtained during surgery - pending, needing reincubation, gram pos cocci on gram stain -cont empiric antibiotics : Zosyn and Vancomycin 07/07-? -ID consulted - appreciate recs. Change to Cefazolin/Cipro as of 07/11- # IDDM Type II - sliding scale insulin , diabetic diet. A1C: 8.7, -Blood sugar 150-180 here off both 30 units NPH daily and metformin # Hypertension - -SBP 120s off losartan 100mg, # Hypercholesterolemia/hypertriglyceridemia- continuing fenofibrate/Crestor # Obesity # GERD - PPI Heparin for DVT prophylaxis GI Prophylaxis: Not indicated VTE Prophylaxis: Sub-Q Heparin (Unfractionated) VTE Mechanical Devices: Intermittant Pneumatic CD Resuscitation Status: CPR: Attempt Resuscitation Bryan Lui MD Jul 11, 2016 16:27
--- NOTE | 2016-07-11 16:50 | DRSVH ---
PROCEDURE: US RETROPERITONEAL SONOGRAM ([id number]) INDICATIONS: ADIN TECHNIQUE: Real-time scanning was performed of the kidneys and bladder, with image documentation. COMPARISON: None. FINDINGS: Kidneys: Kidneys are normal in size. Right kidney measures 11.7 cm long; left kidney measures 12.2 cm long. Right renal cortical thickness is 1.7 cm; left renal cortical thickness is 1.5 cm. Renal c ortical echotexture is normal. No hydronephrosis or nephrolithiasis. No suspicious solid mass lesio ns. Bladder: Pre-void bladder volume is 180 mL. Post-void residual is 0 mL. Pre-void images demonstrat e no intraluminal masses or stones. On pre-void images, neither ureteral jets are noted with color D oppler interrogation. (Of note, ureteral jets may not be detectable in up to 25% of cases due to ins ufficient differences in specific gravity between ureteral and bladder urine). Miscellaneous: No free pelvic fluid. IMPRESSION: Normal kidneys. Dictated by: Brennan LIN Interpreted: Zayda Price MD on 07/11/2016 at 16:49 Transcribed by: RHODA on 07/11/2016 at 16:50 Approved by: Zayda Price M.D. on 07/12/2016 at 10:43
--- NOTE | 2016-07-11 18:47 | PROG NOTE ---
[address] [address] PROGRESS NOTE PATIENT: OLAF ADAMSON : 1960 MR#: [id number] ADMIT: 07/07/2016 JOB ID: [id number] DATE: 07/11/2016 Patient is seen status post I and D of abscess, left foot. He denies any pain, fever, chills. The dressing was just changed approximately an hour ago. The redness and swelling continues to improve. PHYSICAL EXAMINATION: Blood pressure 121/75, pulse 62, respirations 16, temperature 36.4, pulse oximetry 98% on room air. Lower extremity exam: Dressing is intact. There is a small amount of bloody drainage on the inner dressing. There is an ulceration with incision which measures 6 cm x 2 cm and is 1.8 cm deep. There is bone exposed at the base of the wound. However, this is decreased from the previous visit and the bone looks normal and within normal limits. There is also tendon within the wound base, however, this is also normal in appearance. The granulation tissue is red and firm. There is no erythema noted plantarly. There is a small amount of erythema around the incision dorsally, however, this is decreased from yesterday. A small amount of serous drainage from this ulceration as well. Granulation tissue is red and firm. Neurovascular status is intact to all toes of the left foot. Microbiology: Staph aureus sensitive to oxacillin. No anaerobes isolated. LABORATORY DATA: WBC 4.5, hemoglobin 11.7, hematocrit 34.4, platelets 173, neutrophils 51. Sodium 138, potassium 4.2, chloride 102, carbon dioxide 22, BUN 20, creatinine 1.41, estimated GFR 56, glucose 155, calcium 9.3. ASSESSMENT AND PLAN: 1. Cellulitis with abscess is resolving well. There are no acute signs of infection Plantarly. The redness and swelling along the dorsal incision is resolving as well. The patient does have 2nd metatarsal head exposed at the base, however. The bone appears healthy at this time, although with chronic osteo sometimes it is difficult to tell. I spoke to Dr. Page who suggested IV antibiotics which would treat underlying osteomyelitis if it is present and help prevent the exposed bone from being infected if it is not already. The intraoperative culture shows methicillin sensitive Staphylococcus aureus and the patient is currently on Ancef. The vancomycin is discontinued which should also help with his kidneys. The patient will continue on antibiotics per recommendations of Dr. Page. 2. Ulcer, status post incision and debridement of left foot is improving well. We will consider using the wound VAC try to close the area more quickly, however, it may be difficult to achieve a vacuum seal due to the ulceration adjacent to the incision site. Another possible way to close the wound more quickly would be to do a delayed primary closure. This can be done as an outpatient, however. In the meantime, will continue packing the wound with 1/4-inch Iodoform gauze. I will add Hydrogel to the plantar wound to keep the 2nd metatarsal head moist. The rest of the dressing consisted of 4 x 4 gauze and Kerlix. I recommended dressing be changed daily. If the patient is unable to do the dressing himself, we will order home health before he goes home. Recommend he follow up at the [facility] within one week of discharge.
[2016-07-11 19:35] VITALS: BP 136/79; PULSE 60; RESP 17; O2SAT 96
--- NOTE | 2016-07-11 19:47 | NUR ---
Dressing Change Patient dressing changed to left foot per orders. Patient tolerated procedure well. No foul smell or discharge noted. Care is ongoing.
[2016-07-12 05:32] VITALS: BP 110/65; PULSE 61; RESP 16; O2SAT 95
[2016-07-12] MEDS: Heparin 5,000 Unit/mL Inj SUBQ SCH ×2 (05:35→13:08)
[2016-07-12] MEDS: CeFAZolin Inj 2 GM in IV Premix 1 EACH IV SCH ×2 (05:36→13:08)
[2016-07-12] MEDS: Insulin Human REGular 300 Unit/3 mL Inj SUBQ SCH ×3 (08:10→17:30)
[2016-07-12] MEDS: ALPRAZolam 0.5 mg Tablet PO SCH ×2 (08:30→14:30)
--- NOTE | 2016-07-12 09:40 | PCM.PNNEPH ---
Subjective Date of Service Jul 12, 2016 Subjective Patient's renal function continues to improve. He offers no new complaints. His eyes nose for last 24 hours were 3690 N and 3300 out with 1900 and urine output already today. His urine protein creatinine ratio is normal 0.1. His sodium was 139, potassium 4.3, chloride 103, bicarbonate of 20, BUN and creatinine are 59 and 1.5 respectively. Exam Vital Signs Vital Sign - Last Date Time Temp Pulse Resp B/P Pulse Ox O2 Delivery O2 Flow Rate FiO2 07/12/16 05:32 36.5 61 16 110/65 95 Room Air Intake and Output 07/11/16 07/11/16 07/12/16 Cumulative From/Thru 15:00 23:00 07:00 07/07/16 19:39 - 07/12/16 05:43 Intake Total 2284 ml 1970 ml 70223 ml Output Total 1000 ml 1900 ml 6300 ml Balance 1284 ml 70 ml 5532 ml Intake Oral 1237 ml 1200 ml 5897 ml IV Total 1047 ml 770 ml 5935 ml Output Urine Total 1000 ml 1900 ml 6300 ml # Voids 12 # Bowel Movements 0 3 Exam Neck is supple without adenopathy, thyromegaly, or jugular venous distention. Lungs clear to auscultation. Heart is regular and rhythmical with a soft systolic murmur. Abdomen is soft without any tenderness rebound guarding masses or hepatosplenomegaly. Extremities do not show any evidence of any clubbing cyanosis or edema. Skin turgor is good nutritional evidence of any rashes. Lab and Diagnostics Result Diagram: 07/11/16 0600 07/12/16 0610 X-Rays, CTs and MRIs Foot X-ray Pending Additional Diagnostics I&D - Dr. Rendon DATE OF SURGERY: 07/08/2016 PREOPERATIVE DIAGNOSIS(ES): Abscess, second metatarsophalangeal joint, left foot, with diabetic ulcer. POSTOPERATIVE DIAGNOSIS(ES): Abscess, second metatarsophalangeal joint, left foot, with diabetic ulcer. Plan Impression Impression #1 acute kidney injury secondary to medication which appears to be resolved to diabetic nephropathy #3 hypertension with hypertensive heart disease and hypertensive nephrosclerosis. Recommendations #1 point he can be discharged today. I would like to see him in the office in approximately 4-6 weeks. Eder Goodwin DO Jul 12, 2016 09:39
--- NOTE | 2016-07-12 12:45 | NUR ---
Social Work- Continued D/C Planning Data: EMR reviewed. Pt is on day 5 of hospitalization for diabetic foot ulcer per H&P. Pt is being followed by ID. SW awaits ID recommendations to R/O home infusion. Pt recommends HH at this time. Pt is not homebound at this time, is not eligible for HH. Per multidisciplinary rounds, RN to teach pt to manage wound dressing changes. Pt to discharge home with via POV. SW will continue to follow for recommendations and R/O home infusion. Assessment: Pt who is independent at base Plan: Awaiting ID recommendations. Pt to discharge home with via POV. SW will continue to follow for recommendations and R/O home infusion. ROSEY Mayorga
[2016-07-12 13:51] VITALS: BP 131/79; PULSE 60; RESP 16; O2SAT 96
[2016-07-12] MEDS ORDERED: Sodium Chloride LOK Flush 10 mL Syringe IVFLUSH PRN ×2 (14:50)
--- NOTE | 2016-07-12 15:15 | NUR ---
Social Work- Readiness for Discharge Data: EMR reviewed. Pt is on day 5 of hospitalization for diabetic foot ulcer per H&P. Pt is being followed by ID. Pt to discharge on daily IV abx ceftriaxone through August 04. SW followed up with pt and at bedside regarding discharge plan and abx. Pt states that he will come into [facility] daily for IV abx infusion and wound dressing changes. Pt to discharge home with via POV. SW continues to follow. Assessment: Pt who is independent at base Plan: Pt to come to [facility] daily for IV abx and wound dressing changes. Pt to discharge home with via POV. SW will continue to follow. Anna Morgan MSW
--- NOTE | 2016-07-12 15:37 | PROG NOTE ---
[address] [address] PROGRESS NOTE PATIENT: OLAF ADAMSON : 1960 MR#: [id number] ADMIT: 07/07/2016 JOB ID: [id number] DATE: 07/12/2016 INFECTIOUS DISEASE FOLLOW UP NOTE: REASON FOR FOLLOWUP: Severe diabetic foot infection involving the left forefoot. INTERVAL HISTORY: Recall this is the 55-year-old gentleman who was recently in [place] on vacation when he developed a very severe diabetic foot infection. He was hospitalized in [place] and appropriate cultures were done. We have contacted the hospital in [place] and found out that the cultures there grew MSSA as well as Cipro sensitive Pseudomonas aeruginosa. He was treated intravenously for couple days in [place] and then sent out on oral Cipro and [place] and was readmitted to this facility for additional surgical intervention per Dr. Rendon. I have discussed this case in detail in the past [address] Rendon and she thinks there is no direct involvement of the bones but he remains at high risk for osteo and we decided to prolong course of IV antibiotics directed at the Staph component of this infection would be reasonable. Today, the patient is feeling quite well. He has no pain in his foot, but of course, it is insensate. He has no fevers, chills, sweats, cough, shortness of breath, nausea, vomiting or diarrhea. PHYSICAL EXAMINATION: Reveals an afebrile gentleman, temperature 36.7, pulse 60, respiratory rate 16, blood pressure 131/79. He is saturating well on room air and in no acute distress. Eyes without conjunctivitis. Oral cavity basically negative. Lungs clear. Cardiac tones without murmur. He has a left forearm peripheral IV which appears benign. Abdomen is soft and nontender. The left lower extremity wound was discussed in great detail at the bedside with Josh from wound care. There is no purulence or drainage and it appears as yesterday's description. LABORATORIES: Include a white count 4500 yesterday, not repeated today. Creatinine 1.35 today, still slowly improving. Recall that he had earlier received some vanco. Micro from this center is MSSA. Recall that in [place] it was MSSA and Pseudomonas. IMAGING: No additional imaging has been done. IMPRESSION: This patient has a very significant deep space infection of the left foot which has now been thoroughly debrided. The polymicrobial nature of the wound and the structures at risk suggest to me that we should continue with a fairly prolonged course of outpatient MSSA therapy. The patient and his would prefer to receive the IV infusion therapy in the PAC as he can get his wound dressings done there at the same time that he receive the IV antibiotics and this would be very convenient for them. In terms of picking a once a day antibiotic, we will go in this case with ceftriaxone. Though there has been some discussion in the literature about whether ceftriaxone is adequate for MSSA osteo as compared to cefazolin, there does seem to be an emerging consensus that it is a reasonable option and certainly the once a day feature is very attractive. RECOMMENDATIONS: 1. I have ordered a PICC line. 2. I have set up once a day IV ceftriaxone to be given in the [facility] through August 04. 3. The patient should also be discharged with Cipro 500 p.o. b.i.d. through August 04. 4. I will see the patient frequently in my clinic starting July 20. 5. I have also written for lab work to be done every Monday and sent including CBC, CMP and CRP. 6. I note that the patient will also be receiving followup from Nephrology.
--- NOTE | 2016-07-12 15:38 | PCM.PNMED ---
Subjective Date of Service Jul 12, 2016 Subjective No complaints of foot pain, chest pain, nausea or vomiting. He understands his foot looks better Exam Vital Signs Vital Sign - Last Date Time Temp Pulse Resp B/P Pulse Ox O2 Delivery O2 Flow Rate FiO2 07/12/16 13:51 36.7 60 16 131/79 96 Room Air Intake and Output 07/11/16 07/11/16 07/12/16 Cumulative From/Thru 15:00 23:00 07:00 07/07/16 19:39 - 07/12/16 05:43 Intake Total 2284 ml 1970 ml 40787 ml Output Total 1000 ml 1900 ml 6300 ml Balance 1284 ml 70 ml 5532 ml Intake Oral 1237 ml 1200 ml 5897 ml IV Total 1047 ml 770 ml 5935 ml Output Urine Total 1000 ml 1900 ml 6300 ml # Voids 12 # Bowel Movements 0 3 Exam Gen.- A+ O 3 no apparent distress. Obese male lying in bed Eyes- open conjunctiva clear, pupils equal nonicteric ENT- ears normal, nose normal Neck- supple/trach midline CVS-normal rate Lungs-normal rate, respirations regular no accessory muscles GI-generous pannus Musc- moving 4 no obvious deformity Neuro- cranial nerves II through XII intact to gross examination, nonfocal Skin- warm and dry, no rashes/lesions/wounds noted left foot wrapped in gauze c/d/i Psych- pleasant and appropriate, Lab and Diagnostics Result Diagram: 07/11/16 0600 07/12/16 0610 X-Rays, CTs and MRIs Foot X-ray Pending Additional Diagnostics I&D - Dr. Rendon DATE OF SURGERY: 07/08/2016 PREOPERATIVE DIAGNOSIS(ES): Abscess, second metatarsophalangeal joint, left foot, with diabetic ulcer. POSTOPERATIVE DIAGNOSIS(ES): Abscess, second metatarsophalangeal joint, left foot, with diabetic ulcer. Assessment & Plan 55-year-old male came back from [place] with a diabetic foot 07/07, procedure with Dr. Rendon 07/08. Whether there is a concern of osteomyelitis is not clear at this time. 07/12 patient medically stable antibiotics as per infectious disease. No changes to regimen regimen PICC line ordered possible discharge tonight or tomorrow. # Infected diabetic Foot Ulcer -Admit inpatient -s/p I&D by Dr Rendon - Wound culture obtained during surgery - pending, needing reincubation, gram pos cocci on gram stain -cont empiric antibiotics : Zosyn and Vancomycin 07/07-? stopped -ID consulted - appreciate recs. Change to Cefazolin/Cipro as of 07/11-, plan for ceftriaxone 2g daily, cipro bid - 08/04, picc line ordered #ADIN- baseline Cr 0.8ish, slowly recovering management as per nephrology thank you. # IDDM Type II - sliding scale insulin , diabetic diet. A1C: 8.7, -Blood sugar 150-180 here off both 30 units NPH daily and metformin # Hypertension - -SBP 120s off losartan 100mg, # Hypercholesterolemia/hypertriglyceridemia- continuing fenofibrate/Crestor # Obesity # GERD - PPI Heparin for DVT prophylaxis GI Prophylaxis: Not indicated VTE Prophylaxis: Sub-Q Heparin (Unfractionated) VTE Mechanical Devices: Intermittant Pneumatic CD Resuscitation Status: CPR: Attempt Resuscitation Bryan Lui MD Jul 12, 2016 15:38
--- NOTE | 2016-07-12 16:17 | NUR ---
Wound Care Wound orders received,55 yo Male under the care of Dr Danuta Rendon for left diabetic foot ulcer. Patient seen at bedside with spouse for dressing change instructions. Patient presents with dorsal foot ulcer that is 1.5 cm L x 0.8 cm W and a depth that communicates with plantar wound. Plantar wound is at the third met head and is 5 cm L x 2 cm W, there is tendon and bone visible in the base of the wound after wound packing is removed. Wound is draining scant serous fluid, erythema is minimal as is swelling. instructed in dressing changes which include, packing of wounds with iodoform 1/4" packing after application of hydrogel, then covered with gauze and wrapped with kerlix. After speaking with Dr Page it sounds like plan will be for PICC line placement then abx by PICC in [facility] daily for 20 days, dressings can be changed by nursing during infusion and will arrange follow up with Dr Rendon at Wound Center.
[2016-07-12 16:22] LABS: Mean Corpuscular Hemoglobin 29.1 pg (27.0-35.0); Mean Corpuscular Volume 84.9 fL (81-100)
--- NOTE | 2016-07-12 16:41 | OP ---
[address] [address] OPERATIVE REPORT PATIENT: OLAF ADAMSON : 1960 MR#: [id number] ADMIT: 07/07/2016 JOB ID: [id number] DATE OF SURGERY: 07/12/2016 SURGEON: Rupa Landin MD PREOPERATIVE DIAGNOSIS(ES): Recurrent atrial flutter. POSTOPERATIVE DIAGNOSIS(ES): Recurrent atrial flutter. PROCEDURE: Synchronous cardioversion. COMPLICATIONS: None. METHOD: Synchronous cardioversion was performed in the [facility] under IV anesthesia with 1 mg of Versed and 55 mg of Brevital. It was delivered with biphasic 120 joules. The atrial flutter was successfully converted to normal sinus rhythm.
--- NOTE | 2016-07-12 18:17 | PCM.DIMED ---
Discharge Instructions Date of Service Jul 12, 2016 Dates of Hospitalization Jul 07, 2016 at 19:30 Discharge Diagnosis Discharge Diagnosis cellulitis L foot Diet Heart Healthy, Diabetic Activity Other (per podiatry wt reducing @ ulcer site) Patient Instructions Follow-up plan f/u MOC dialy for IV abx and as directed by Dr Rendon to wound center for dressing changes Follow-up Provider: Danuta Rendon DPM Follow-up with PCP in: Other (call) Provider: Du Petty MD Follow-up in: Other (call) Bryan Lui MD Jul 12, 2016 18:17
[2016-07-12] MEDS ORDERED: CIPR-231 PO (18:20)
[2016-07-12] MEDS ORDERED: CEFT2FRO2 IV (18:20)
[2016-07-12] MEDS ORDERED: FENO48TA4 PO (18:20)
--- NOTE | 2016-07-12 18:34 | PCM.DC.MED ---
Discharge Summary Date of Service Jul 12, 2016 Dates of Hospitalization Date of Hospital Admission Jul 07, 2016 at 19:30 Date of Discharge: Jul 12, 2016 Providers: Admitting Physician: Jaxson Robertson MD Primary Care Physician: Du Petty MD Attending Physician: Jaxson Robertson MD Diagnosis at Time of Discharge Diagnosis at Time of Discharge cellulitis L foot Consultations Dr Rendon podiatry Dr Page ID Thankyou Procedures XRay, CTs & MRIs Foot X-ray IMPRESSION: Although no bony erosions are identified, plain film radiography is relatively insensitive in the acute phases of osteomyelitis and may not demonstrate radiographic changes for 15 days. If acute osteomyelitis is of clinical concern, nuclear medicine regional bone scan or MRI is recommended. Other Diagnostics I&D - Dr. Rendon DATE OF SURGERY: 07/08/2016 PREOPERATIVE DIAGNOSIS(ES): Abscess, second metatarsophalangeal joint, left foot, with diabetic ulcer. POSTOPERATIVE DIAGNOSIS(ES): Abscess, second metatarsophalangeal joint, left foot, with diabetic ulcer. Brief History 55-year-old male with past medical history of Hypertension, obesity, hypercholesterolemia, insulin-dependent diabetes. Patient presented to the podiatry due to a non healing foot ulcer, with drainage of pus. Patient is sent to the hospital for direct admission. Patient was recently in [place] when he first noticed his wound and the bottom of his left foot, trans metatarsal area. He went to the hospital where he had a debridement done. Patient stated he spent 4 days and the hospital and received IV antibiotics, he was discharged on oral ciprofloxacin. Patient immediately went to the airport and the flight back home to [place] and today presented to her podiatry ( less than 48 hours) . Patient endorses subjective fever, chills over the last 24 hours or so. No chest pain, shortness of breath, abdominal pain.,. Hospital Course 55-year-old male came back from [place] with a diabetic foot 07/07, procedure with Dr. Rendon 07/08. Whether there is a concern of osteomyelitis is not clear at this time. 07/12 patient medically stable antibiotics as per infectious disease. No changes to regimen regimen PICC line ordered possible discharge tonight or tomorrow. # Infected diabetic Foot Ulcer -Admit inpatient -s/p I&D by Dr Rendon - Wound culture obtained during surgery - pending, needing reincubation, gram pos cocci on gram stain -cont empiric antibiotics : Zosyn and Vancomycin 07/07-? stopped -ID consulted - appreciate recs. Change to Cefazolin/Cipro as of 07/11-, plan for ceftriaxone 2g daily, cipro bid - 08/04, picc line ordered #ADIN- baseline Cr 0.8ish, slowly recovering management as per nephrology thank you. # IDDM Type II - sliding scale insulin , diabetic diet. A1C: 8.7, -Blood sugar 150-180 here off both 30 units NPH daily and metformin # Hypertension - -SBP 120s off losartan 100mg, # Hypercholesterolemia/hypertriglyceridemia- continuing fenofibrate/Crestor # Obesity # GERD - PPI Heparin for DVT prophylaxis Exam Vital Signs (Last) Date Time Temp Pulse Resp B/P Pulse Ox O2 Delivery O2 Flow Rate FiO2 07/12/16 13:51 36.7 60 16 131/79 96 Room Air Exam see prog not from earlier today Test 07/07/16 20:35 07/08/16 04:26 07/09/16 13:42 07/10/16 04:30 Prothrombin Time 10.8sec (8.1-12.5) Prothromb Time International Ratio 1.01ratio Hemoglobin A1c 8.7% (4.8-5.6) Triglycerides Level 444mg/dL (0-149) Cholesterol Level 250mg/dL (100-199) LDL Cholesterol, Calculated 146.200mg/dL (0-99) VLDL Cholesterol 88.800mg/dL HDL Cholesterol 15mg/dL (>39) Cholesterol/HDL Ratio 16.67 (0.0-4.4) Hold Urine Received (Received) Phosphorus Level 3.6mg/dL (2.5-4.9) Magnesium Level 1.6mg/dL (1.6-2.6) Test 07/10/16 16:00 07/10/16 20:05 07/11/16 05:59 07/11/16 06:00 Urine Color Yellow (YELLOW) Urine Appearance Hazy (CLEAR,HAZY) Urine pH 5.5 (5.0-8.0) Urine Specific Novi 1.020 (1.003-1.035) Urine Protein Negativemg/dL (NEG,TRACE) Urine Glucose (UA) Negativemg/dL (NEGATIVE) Urine Ketones Negativemg/dL (NEGATIVE) Urine Occult Blood Large (NEGATIVE) Urine Nitrite Negative (NEGATIVE) Urine Bilirubin Negative (NEGATIVE) Urine Urobilinogen Normalmg/dL (NORMAL) Urine Leukocyte Esterase Negative (NEGATIVE) Urine RBC >50/hpf (0-2) Urine WBC 0-5/hpf (0-5) Urine Epithelial Cells Occasional/hpf (NONE-MOD) Urine Crystals None seen (NONE SEEN) Urine Bacteria Few/hpf (NONE-FEW) Urine Hyaline Casts None/lpf (NONE) Urine Granular Casts None seen (NONE SEEN) Urine Waxy Casts None seen (NONE SEEN) Urine Red Blood Cell Casts None seen (NONE SEEN) Urine White Blood Cell Casts None seen (NONE SEEN) Urine Mucus Present (None Seen) Urine Trichomonas None seen (NONE SEEN) Urine Yeast None (NONE SEEN) Urinalysis Comment None Urine Random Creatinine 116mg/dL (22-328) Urine Random Total Protein 10mg/dL (0-15) Urine Random Sodium 98mEq/L Vancomycin Level Trough 8.7mcg/mL Vitamin D 25-Hydroxy 10.0ng/mL (30.0-100.0) Neutrophils (%) (Auto) 51% (40-74) Lymphocytes (%) (Auto) 32% (14-46) Monocytes (%) (Auto) 8% (4-12) Eosinophils (%) (Auto) 4% (0-5) Basophils (%) (Auto) 1% (0-3) Band Neutrophils % 3% (1-5) Metamyelocytes % 1% (0-0) Test 07/12/16 16:14 White Blood Count 6.6th/mm3 (3.8-10.1) Red Blood Count 4.05mil/mm3 (4.40-5.80) Hemoglobin 11.8g/dL (13.8-17.2) Hematocrit 34.4% (41.0-50.0) Mean Corpuscular Volume 84.9fL (81-100) Mean Corpuscular Hemoglobin 29.1pg (27.0-35.0) Mean Corpuscular Hemoglobin Concent 34.3% (32.0-37.0) Red Cell Distribution Width 12.8% (12.3-15.4) Platelet Count 210bil/L (150-400) Sodium Level 135mEq/L (134-144) Potassium Level 4.4mEq/L (3.5-5.2) Chloride Level 101mEq/L (97-108) Carbon Dioxide Level 18mmol/L (18-29) Blood Urea Nitrogen 20mg/dL (6-24) Creatinine 1.35mg/dL (0.76-1.27) Estimat Glomerular Filtration Rate 59mL/min (>59) Glucose Level 167mg/dL (60-99) Calcium Level 9.8mg/dL (8.5-10.1) Total Bilirubin 0.2mg/dL (0.0-1.2) Aspartate Amino Transf (AST/SGOT) 50U/L (0-50) Alanine Aminotransferase (ALT/SGPT) 50U/L (0-44) Alkaline Phosphatase 77U/L (25-150) C-Reactive Protein 1.1mg/dL (0.0-0.5) Total Protein 7.6g/dL (6.4-8.4) Albumin 3.4g/dL (3.4-5.0) Discharge Medications Discharge Medications Aspirin (Aspirin) 81 Mg Tablet 81 MG PO DAILY (Reported) Atenolol (Atenolol) 25 Mg Tablet 25 MG PO DAILY (Reported) Ceftriaxone Na/Dextrose,Iso (Ceftriaxone 2 gm Piggyback) 2 Gm/50 Ml Froz.piggy 2 GM IV DAILY Prescribed by: KIMBERLEY LUI MD Ciprofloxacin (Cipro) 500 Mg Tablet 500 MG PO BID Prescribed by: KIMBERLEY LUI MD Fenofibrate Nanocrystallized (Fenofibrate) 48 Mg Tablet 48 MG PO DAILY Prescribed by: KIMBERLEY LUI MD Fluoxetine (Fluoxetine) 20 Mg Capsule 20 MG PO DAILY (Reported) Losartan Potassium (Losartan Potassium) 100 Mg Tablet 100 MG PO DAILY (Reported ) Metformin (Metformin) 500 Mg Tablet 1,000 MG PO BID (Reported) NPH, Human Insulin Isophane (HUMulin-N U100 Insulin Vial) 100 Unit/1 Ml Vial 50 UNITS SC QAM (Reported) NPH, Human Insulin Isophane (HUMulin-N U100 Insulin Vial) 100 Unit/1 Ml Vial 30 UNIT SUBQ HS (Reported) Omeprazole (Omeprazole) 20 Mg Capsule.dr 20 MG PO DAILY (Reported) Simvastatin (Simvastatin) 80 Mg Tablet 80 MG PO HS (Reported) As needed Alprazolam (Alprazolam) 0.5 Mg Tablet 0.5 MG PO TID PRN PRN For Anxiety ( Reported) oxyCODONE (oxyCODONE) 5 Mg Capsule 5-10 MG PO Q4H PRN PRN For Pain (Reported) Followup Plan Follow-up plan f/u MOC dialy for IV abx and as directed by Dr Rendon to wound center for dressing changes Discharge Diet: Heart Healthy, Diabetic Discharge Activity: Other (per podiatry wt reducing @ ulcer site) Follow-up Provider: Danuta Rendon DPM Follow-up with PCP in: Other (call) Provider: Du Petty MD Follow-up in: Other (call for apt HUSSAIN f/u BP, BS) Time spent >30min Attending Statement note patient BS 150s getting only 4U/day SS insulin, BP controlled of losartan. Patient advised to resume insulin/losartan cautiously if at all before f/u w/ PCP Kimberley Lui MD Jul 12, 2016 18:34
--- NOTE | 2016-07-12 19:00 | NUR ---
Pain Patient continues to deny pain at surgical site, stating that preexisting diabetic neuropathy prevents sensation. Dressing clean, dry and intact. Patient alert and oriented, denies nausea, vomiting or other difficulties. Vital signs stable, care is ongoing.
[2016-07-12 20:16] VITALS: BP 130/76; PULSE 58; RESP 18; O2SAT 97
--- NOTE | 2016-07-12 20:42 | NUR ---
Discharge Patient Discharged At 2030, with in personal vehicle. Patient left with all personal belongings. Peripheral IV discontinued intact. All prescriptions were sent to Patient's Pharmacy. Patient stated he understood and signed discharge paperwork.
--- NOTE | 2016-07-13 11:52 | DRSVH ---
PROCEDURE: X-RAY PICC LINE PLACEMENT BY NURSE ([id number]) INDICATIONS: abx COMPARISON: None. FINDINGS: PICC was placed by the intravenous therapy team from the right side. Fluoroscopic spot fi lm demonstrates tip projected over the lower SVC. IMPRESSION: Tip of PICC projected over the lower SVC . Dictated by: Brennan SHOOKA Interpreted: Lamar Blackman MD on 07/13/2016 at 11:52 Transcribed by: CARLO on 07/13/2016 at 11:52 Approved by: Lamar Blackman MD, PhD on 07/13/2016 at 16:42
--- NOTE | 2016-07-13 14:02 | OP ---
[address] [address] OPERATIVE REPORT PATIENT: OLAF ADAMSON : 1960 MR#: [id number] ADMIT: 07/07/2016 JOB ID: [id number] DATE OF SURGERY: 07/12/2016 PREOPERATIVE DIAGNOSIS(ES): Recurrent atrial flutter. POSTOPERATIVE DIAGNOSIS(ES): Recurrent atrial flutter. DATE OF SURGERY: SURGEON: PREOPERATIVE DIAGNOSIS(ES): POSTOPERATIVE DIAGNOSIS(ES): PROCEDURE: Synchronous cardioversion. COMPLICATIONS: None. METHOD: Synchronous cardioversion was performed in the [facility] under IV analgesia with 1 mg of Versed and 50 mg of Brevital. It was delivered with biphasic 120 joules. The atrial flutter was successfully converted to normal sinus rhythm.
[2016-07-13] MEDS ORDERED: Vancomycin Serum Trough XX ONE (21:30)
== END 2016-07-12 20:30 | disposition home or self-care (01) | DRG 623 ==
LOC: ORA 19:29 → OSC 19:30
PROVIDERS: ADMIT Internal Medicine; ATTEND Internal Medicine
PROC: 0JBR0ZZ Excision of Left Foot Subcutaneous Tissue and Fascia, Open Approach (ICD-10-PCS; principal; 2016-07-08 14:15)
DX: E11.621 Type 2 diabetes mellitus with foot ulcer (principal); L03.116 Cellulitis of left lower limb; Z68.41 Body mass index [BMI] 40.0-44.9, adult; L97.529 Non-pressure chronic ulcer of other part of left foot with unspecified severity; Z79.4 Long term (current) use of insulin; I10 Essential (primary) hypertension; Z79.01 Long term (current) use of anticoagulants; Z87.891 Personal history of nicotine dependence; K21.9 Gastro-esophageal reflux disease without esophagitis; E11.65 Type 2 diabetes mellitus with hyperglycemia; N17.0 Acute kidney failure with tubular necrosis; E66.01 Morbid (severe) obesity due to excess calories; E78.00 Pure hypercholesterolemia, unspecified